=== PATIENT | female | born 1995 | race Caucasian/White ===

== ENCOUNTER 2023-08-22 17:42 | Inpatient (IN) ==
[2023-08-22 18:22] LABS: Basophils # (auto) 0.09 K/uL (0.00-0.20); Basophils % (auto) 0.8 %; Eosinophils # (auto) 0.24 K/uL (0.00-0.50); Hematocrit (blood only) 41.2 % (37.0-47.0); Hemoglobin 12.5 g/dl (12.0-16.0); Immature Granulocytes # (auto) 0.04 K/uL (0.01-0.20); Immature Granulocytes % (auto) 0.3 %; Lymphocytes # (auto) 3.44 K/uL (1.20-3.40); Mean Corpuscular Hemoglobin 21.9 pg (25.0-34.0); Mean Corpuscular Hgb Conc 30.3 g/dL (32.0-36.0); Mean Corpuscular Volume 72.3 fL (80.0-100.0); Mean Platelet Volume 9.9 fL (9.4-12.4); Monocytes # (auto) 0.59 K/uL (0.11-0.59); Neutrophils # (auto) 7.46 K/uL (1.40-6.50); Neutrophils % (auto) 62.9 %; Platelet Count 442 K/uL (130-400); RDW Coefficient of Variation 15.2 % (11.5-14.5); RDW Standard Deviation 38.3 fL (36.4-46.3); White Blood Count 11.86 K/ul (4.8-10.8)
[2023-08-22 18:23] LABS: Appearance Urine Cloudy (Clear); Bilirubin Urine Negative (Negative); Blood Urine Negative (Negative); Color Urine Yellow; Epithelial Cell Urine Auto >30 /lpf (0-5); Glucose Urine UA Negative (Negative); Ketones Urine Negative (Negative); Leukocyte Esterase Urine Negative (Negative); Nitrite Urine Negative (Negative); Protein Urine Negative (Negative); Specific Gravity Urine 1.025 (1.000-1.030); Urobilinogen Urine Negative (Negative); pH Urine 6.5 (4.5-7.5)
--- NOTE | 2023-08-22 18:34 | Emergency Department Note ---
Impression & Plan Suicidal ideation ED Provider Note HISTORY OF PRESENT ILLNESS: Patient is a 28-year-old female presenting with suicidal ideation. Patient reports that for the last 3 weeks she has been having more recurrent episodes and intrusive thoughts about ending her life. Reports that she will be driving down the road and think about taking her car off the road and into a baker to drown herself or crashing her car into a tree knee. Denies any specific plan. She recently started a new medication for her bipolar disorder 2 weeks ago through her psychiatrist. She has never attempted suicide before. Has never undergone inpatient psychiatric treatment. Denies any homicidal ideation. Denies any auditory visual hallucinations. Denies any physical complaints at this time. ROS: as above PHYSICAL EXAM: Constitutional: Patient appears in no acute distress. HENT: Head: Normocephalic and atraumatic. Eyes: EOMI, PERRL Mouth/Throat: Mucous membranes moist. Neck: Trachea midline. Neck supple. Musculoskeletal: No edema, tenderness or deformity noted. Skin: Warm and dry. No rash, erythema, pallor or cyanosis Psychiatric: Patient intermittently tearful. Neurological: Alert and keenly responsive. CN II-XII grossly intact, moving all extremities equally and fully. MDM: - Vitals signs showed hypertension and tachycardia - History obtained via patient. History as above. - Chronic conditions affecting care: bipolar disorder - Differential diagnoses include, but are not limited to: depression; UTI; alcohol intoxication; drug intoxication; electrolyte abnormality - External medical records reviewed. - Laboratory workup interpreted by myself showed slight leukocytosis (WBC 11.86); stable electrolytes; slightly elevated anion gap (12); normal TSH; negative hCG; negative alcohol/salicylate/acetaminophen levels - UA negative for infection. UDS negative - COVID negative. - Patient medically cleared. - Patient seen in conjunction with the behavioral health pillowcase cleaner. Patient was agreeable to voluntary 201 admission. 201 was signed by myself. - Patient was accepted and admitted to [address] inpatient psychiatric unit. ASSESSMENT AND PLAN: Diagnosis: suicidal ideation Plan: admit to [address] [place] [address] Past Med/Surg History Social History Smoking Status: Never smoker Preferred Language: Kittitian Feels Safe at Home: Yes Gender Identity: Female Allergies Allergies Allergy/AdvReac Type Severity Reaction Status Date / Time amoxicillin Allergy Rash Verified 08/22/23 20:18 Home Meds Home Medications Medication Instructions Recorded Confirmed cholecalciferol (vitamin D3) 125 5,000 unit PO DAILY 08/22/23 08/22/23 mcg (5,000 unit) tablet (Vitamin D3) levothyroxine 88 mcg tablet 88 mcg PO DAILY 08/22/23 08/22/23 lurasidone 20 mg tablet 20 mg PO DAILY 08/22/23 08/22/23 norgestimate-ethinyl estradiol 1 tab PO DAILY 08/22/23 08/22/23 0.18 mg/0.215mg/0.25mg-35 mcg(28)tablet venlafaxine 150 mg 187 mg PO DAILY 08/22/23 08/22/23 capsule,extended release 24 hr Results & Data (ED) Vital Signs Vital Signs - 24 hr 08/22/23 17:45 08/22/23 19:08 08/22/23 20:10 Temperature 36.5 C 36.5 C Temperature Source Temporal Artery Scan Oral Pulse Rate 110 H Pulse Rate [Left Finger] 114 H 95 H Pulse Rhythm Regular Pulse Strength Normal Respiratory Rate 18 16 18 Respiratory Effort / Characteristics Non-Labored Spontaneous Non-Labored Spontaneous Respiratory Depth Normal Normal Respiratory Pattern Regular Blood Pressure 166/103 H Blood Pressure [Right Arm] 172/114 H 136/76 Blood Pressure Mean 124 Blood Pressure Mean [Right Arm] 133 96 Blood Pressure Position Sitting Pulse Oximetry 94 97 97 Oxygen Delivery Method Room Air Room Air Room Air Sepsis Recent Fever Within 48 Hours No Sepsis New/Unexplained Change in Mental Status No Sepsis Action Taken by Nursing No Action Required Laboratory Data 08/22/23 18:04 08/22/23 18:04 Lab Results 08/22/23 08/22/23 08/22/23 Range/Units 17:50 18:04 18:14 WBC 11.86 H (4.8-10.8) K/ul RBC 5.70 H (4.20-5.40) M/uL Hgb 12.5 (12.0-16.0) g/dl Hct 41.2 (37.0-47.0) % MCV 72.3 L (80.0-100.0) fL MCH 21.9 L (25.0-34.0) pg MCHC 30.3 L (32.0-36.0) g/dL RDW Std Deviation 38.3 (36.4-46.3) fL RDW Coeff of Rex 15.2 H (11.5-14.5) % Plt Count 442 H (130-400) K/uL MPV 9.9 (9.4-12.4) fL Immature Gran % (Auto) 0.3 % Neut % (Auto) 62.9 % Lymph % (Auto) 29.0 % [place] % (Auto) 5.0 % Eos % (Auto) 2.0 % Baso % (Auto) 0.8 % Neut # (Auto) 7.46 H (1.40-6.50) K/uL Lymph # (Auto) 3.44 H (1.20-3.40) K/uL [place] # (Auto) 0.59 (0.11-0.59) K/uL Eos # (Auto) 0.24 (0.00-0.50) K/uL Baso # (Auto) 0.09 (0.00-0.20) K/uL Immature Gran # (Auto) 0.04 (0.01-0.20) K/uL Sodium 140 (136-145) mmol/L Potassium 4.0 (3.5-5.1) mmol/L Chloride 102 (98-107) mmol/L Carbon Dioxide 26 (21-32) mmol/L Anion Gap 12 H (3-11) BUN 13 (6-23) mg/dl Creatinine 0.79 (0.6-1.2) mg/dl Est Cr Clr Drug Dosing 146.2 ml/min Est GFR ( Amer) 119.7 ml/min Est GFR (Non-Af Amer) 103.3 ml/min BUN/Creatinine Ratio 16.5 (10-20) Glucose 113 H (70-99(Fasting)) mg/dl Calcium 9.6 (8.6-10.3) mg/dl Total Bilirubin 0.3 (0.2-1.0) mg/dl AST 129 H (13-39) U/L ALT 41 (7-52) U/L Alkaline Phosphatase 88 (34-104) U/L Total Protein 7.9 (6.0-8.3) gm/dl Albumin 4.1 (3.4-5.0) gm/dl Globulin 3.8 (2.5-4.0) gm/dl Albumin/Globulin Ratio 1.1 (0.9-2) TSH 3.002 (0.300-4.500) uIu/ml HCG, Qual Negative (Negative) Urine Color Yellow Urine Appearance Cloudy A (Clear) Urine pH 6.5 (4.5-7.5) Ur Specific [place] 1.025 (1.000-1.030) Urine Protein Negative (Negative) Urine Glucose (UA) Negative (Negative) Urine Ketones Negative (Negative) Urine Blood Negative (Negative) Urine Nitrite Negative (Negative) Urine Bilirubin Negative (Negative) Urine Urobilinogen Negative (Negative) Ur Leukocyte Esterase Negative (Negative) Urine WBC (Auto) 5-10 H (0-5) /hpf Urine RBC (Auto) 0-4 (0-4) /hpf U Hyaline Cast (Auto) 1-5 (0-5) /lpf U Epithel Cells (Auto) >30 H (0-5) /lpf Urine Bacteria (Auto) 2+ H (Negative) Salicylates < 3.0 L (3.0-30) mg/dl Urine Opiates Screen Neg (Neg) Ur Methadone, Qual Neg (Neg) Acetaminophen < 3 L (10-30) ug/ml Urine Barbiturates Neg (Neg) Ur Phencyclidine (PCP) Neg (Neg) U Amphetamin/Meth Scrn Neg (Neg) MDMA (Ecstasy) Screen Neg (Neg) U Benzodiazepines Scrn Neg (Neg) Ur Cocaine Metabolite Neg (Neg) U Marijuana (THC) Screen Neg (Neg) Ethyl Alcohol mg/dL < 10.0 (<10.0) mg/dl SARS-CoV-2, RNA, NAAT NEGATIVE (NEGATIVE) Discharge Plan Visit Data Chief Complaint: Mental Health Evaluation Stated Complaint: [facility] ED Provider: Renee Nuno Discharge Problem: Suicidal ideation Forms Stand Alone Forms: My [facility], Suicide Prevention Resources Prescriptions Prescriptions: No Action venlafaxine 150 mg capsule,extended release 24hr 187 mg PO DAILY levothyroxine 88 mcg tablet 88 mcg PO DAILY norgestimate-ethinyl estradiol 0.18/0.215/0.25 mg-35 mcg (28) tablet 1 tab PO DAILY cholecalciferol (vitamin D3) [Vitamin D3] 125 mcg (5,000 unit) tablet 5,000 unit PO DAILY lurasidone 20 mg tablet 20 mg PO DAILY Referrals Referrals: PCP,NO [Physician] -
[2023-08-22 18:36] LABS: Pregnancy Test, Serum Negative (Negative)
[2023-08-22 18:42] LABS: Bacteria Urine Automated 2+ (Negative); RBC Urine Automated 0-4 /hpf (0-4)
[2023-08-22 18:45] LABS: Acetaminophen < 3 ug/ml (10-30); Salicylate < 3.0 mg/dl (3.0-30)
[2023-08-22 18:46] LABS: Albumin Globulin Ratio 1.1 (0.9-2); Albumin Level 4.1 gm/dl (3.4-5.0); BUN Creatinine Ratio 16.5 (10-20); Bilirubin,Total 0.3 mg/dl (0.2-1.0); Calcium 9.6 mg/dl (8.6-10.3); Creatinine Clr Calc Pharmacy 146.2 ml/min; Est GFR (African American) 119.7 ml/min; Est GFR (Non-African American) 103.3 ml/min; Globulin 3.8 gm/dl (2.5-4.0); Total Protein 7.9 gm/dl (6.0-8.3)
[2023-08-22 18:57] LABS: Amphetamines+Metham, Urine Neg (Neg); Barbiturates, Urine Neg (Neg); Benzodiazepine, Urine Neg (Neg); Cocaine, Urine Neg (Neg); MDMA (Ecstacy), Urine Neg (Neg); Marijuana, Urine Neg (Neg); Methadone, Urine Neg (Neg); Opiate, Urine Neg (Neg); Phencyclidine, Urine Neg (Neg)
[2023-08-22 19:00] LABS: Thyroid Stimulating Hormone 3.002 uIu/ml (0.300-4.500)
[2023-08-22] MEDS ORDERED: hydrOXYzine HCl 25 MG TAB PO PRN (21:55)
[2023-08-22] MEDS ORDERED: MAGNESIUM HYDROXIDE SUSP 30 ML UDC PO PRN (21:55)
[2023-08-22] MEDS ORDERED: BISMUTH SUBSALICYLATE LIQD 236 ML PO PRN (21:55)
[2023-08-22] MEDS ORDERED: ACETAMINOPHEN 325 MG TAB PO PRN (21:55)
[2023-08-22] MEDS ORDERED: SODIUM CHLORIDE 0.65% NA SOLN 45 ML (OCEAN) PRN (21:55)
[2023-08-22] MEDS: LURASIDONE HCL 20 MG TAB PO SCH (22:28)
[2023-08-22] MEDS: hydrOXYzine HCl 25 MG TAB PO PRN (22:29)
[2023-08-23] MEDS: CHOLECALCIFEROL 125 MCG (5,000 UNITS) TAB PO SCH (08:45)
[2023-08-23] MEDS: LEVOTHYROXINE SODIUM 88 MCG TABLET PO SCH (08:45)
[2023-08-23] MEDS ORDERED: CHOLECALCIFEROL 125 MCG (5,000 UNITS) TAB PO SCH (09:00)
[2023-08-23] MEDS ORDERED: VENLAFAXINE HCL XR 37.5 MG CAPXR PO SCH (11:00)
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
[2023-08-23] MEDS: VENLAFAXINE HCL XR 150 MG CAPXR PO SCH (12:17)
[2023-08-23] MEDS: VENLAFAXINE HCL XR 37.5 MG CAPXR PO SCH (12:17)
[2023-08-23] MEDS: ALUMINUM/MAGNESIUM SUSP 30 ML UDC PO PRN (12:36)
[2023-08-23] MEDS: PATIENT'S OWN ORAL CONTRACEPTIVE PO SCH (21:05)
[2023-08-23] MEDS ORDERED: PATIENT'S OWN ORAL CONTRACEPTIVE PO SCH (22:00)
--- NOTE | 2023-08-24 14:24 | Psychiatric Progress Note ---
Date of Service August 24, 2023 Impression / Recommendations Impression 28 yo female with a hx of hypomania and recurrent depression reports addition hx of complex trauma (did not elaborate on PTSD sx) presented to ED with persistent SI despite increase in frequency of outpatient therapy to assess coping. 08/24/2023: unclear if reports of compulsions are OCD vs. trauma based vs. racing thoughts. Does not appear restless or manic on exam. Overall, I spent a total of 40 minutes with this case, including review of chart, direct evaluation of the patient, counseling the patient, ordering medication, coordination with nursing/treatment team, risk assessment, and documentation. (1) Bipolar 2 disorder: Plan 08/24/2023: Reviewed can defer retrial of Lamictal to outpatient. Hasn't tried lithium but already hypothyroid. Patient agreeable to titrate Latuda to 40 mg and take with food to improve absorption. Reviewed increasing Effexor XR to optimize given severity of anxiety/depressive symptoms to 225 mg. 08/23/2023: The patient was admitted to the [facility] ([facility]) on q15 min checks (behavioral with suicide precautions) for safety. The patient will participate in group, recreational, and milieu therapies and will be offered additional individual and family sessions as clinically appropriate. Discussed possible retrial of Lamictal vs. titration of Latuda and/or Effexor XR. Inventory Assets Strengths: help seeking, employed Needs: improve boundaries and overall coping Suicide Risk Level Suicide Risk Level: High-Moderate (q15 min suicide checks) Risk Factors Assessment : Yes Do You Have Access To A Gun?: No Mental Health Diagnoses: Yes Substance Use Disorders: No Previous Attempt: No Previous Psychiatric Hospitalization: No Protective Factors Assessment Employed: Yes (KG teacher) Stable Relationships: Yes Interval History Identifying Information ALPHONSO MENDEZ is a 28-year-old F who currently lives in [facility] and was admitted on 08/22/23 21:16 on a 201 voluntary commitment for SI. Chief Complaint "I feel guilty for being here." Review of Systems Sleep Information Total Hours of Sleep: 7.75 Meal Information Percent Meal Consumed - Breakfast: 100 Percent Meal Consumed - Lunch: 100 Percent Meal Consumed - Dinner: 100 Subjective Subjective Patient was seen & assessed and interval progress reviewed with treatment team. Patient described some of her checking behaviors over concerns about doors being unlocked or switches left on. She could not tie it directly to past trauma but has been worse in past where even taking a picture of the switch did not appease her. She checks on things at work even when she is not there. She reports often fueling her depression with checking social media and making comparison. Is typically exhausted after work and can't motivate self to exercise or make health choices. She is willing to shift dosing of Latuda and continue trial. did not sleep as well last night. Physical Exam Psychiatric Orientation: alert and oriented x 3 Apperance: appropriately dressed and appropriately groomed Eye Contact: good eye contact Motor Behavior: no abnormal motor movements Speech: normal rate/rhythm/volume of speech Affect: + depressed affect Mood: + depressed mood Thought Process: goal directed thought process Thought Content: reality based without delusions Suicidal Thoughts: denies suicidal thoughts, denies suicidal plan (on unit) and denies suicidal intent Homicidal Thoughts: denies homicidal thoughts Hallucinations: no auditory hallucinations and no visual hallucinations Cognition: attention grossly intact and language grossly intact Estimated Intelligence: consistent with education level Insight: + limited insight Judgment: + limited judgement Vital Signs (Past 24 Hours) Last Vital Signs Temp 36.9 C 08/24/23 06:37 Pulse 108 H 08/24/23 06:37 Resp 16 08/24/23 06:37 BP 132/87 08/24/23 06:37 Pulse Ox 94 08/22/23 22:43 O2 Del Method Room Air 08/22/23 22:43 Results & Data ([facility]) Current Inpatient Medications Current Inpatient Medications: Current Inpatient Medications Acetaminophen (Acetaminophen 325 Mg Tab) 650 mg PO Q4H PRN PRN Reason: Headache or Minor Fever Stop: 09/21/23 21:54 Al Hydrox/Mg Hydrox/Simethicone (Aluminum/Magnesium Susp 30 Ml Udc) 30 ml PO Q4H PRN PRN Reason: GI Upset Stop: 09/21/23 21:54 Last Admin: 08/23/23 12:36 Dose: 30 ml Bismuth Subsalicylate (Bismuth Subsalicylate Liqd 236 Ml) 15 ml PO PRN PRN PRN Reason: Loose Stool Stop: 09/21/23 21:54 Hydroxyzine HCl (Hydroxyzine Hcl 25 Mg Tab) 50 mg PO HSZ PRN PRN Reason: Insomnia Stop: 09/21/23 21:54 Last Admin: 08/22/23 22:29 Dose: 50 mg Hydroxyzine HCl (Hydroxyzine Hcl 25 Mg Tab) 25 mg PO Q4H PRN PRN Reason: Anxiety Stop: 09/21/23 21:54 Levothyroxine Sodium (Levothyroxine Sodium 88 Mcg Tablet) 88 mcg PO DAILYBB PAMELA Stop: 09/22/23 07:59 Last Admin: 08/24/23 08:02 Dose: 88 mcg Lurasidone HCl (Lurasidone Hcl 20 Mg Tab) 20 mg PO HS PAMELA Stop: 09/21/23 21:59 Last Admin: 08/23/23 21:06 Dose: 20 mg Magnesium Hydroxide (Magnesium Hydroxide Susp 30 Ml Udc) 30 ml PO DAILY PRN PRN Reason: Constipation Stop: 09/21/23 21:54 Miscellaneous (Patient's Own Oral Contraceptive) 1 each PO Q24H PAMELA Stop: 09/22/23 08:59 Last Admin: 08/23/23 21:05 Dose: 1 each Sodium Chloride (Sodium Chloride 0.65% Na Soln 45 Ml ([place])) 1 - 2 sprays NA PRN PRN PRN Reason: Nasal Dryness/Congestion Stop: 09/21/23 21:54 Venlafaxine HCl (Venlafaxine Hcl Xr 150 Mg Capxr) 150 mg PO DAILY PAMELA Stop: 09/22/23 11:29 Last Admin: 08/24/23 08:02 Dose: 150 mg Venlafaxine HCl (Venlafaxine Hcl Xr 37.5 Mg Capxr) 37.5 mg PO DAILY PAMELA Stop: 09/22/23 11:29 Last Admin: 08/24/23 08:02 Dose: 37.5 mg Vitamin D (Cholecalciferol 125 Mcg (5,000 Units) Tab) 125 mcg PO DAILY PAMELA Stop: 09/22/23 08:59 Last Admin: 08/24/23 08:02 Dose: 125 mcg Mental Health & Subst Abuse Tx Psychiatrist Name of Psychiatrist: Claudia Valera Psychiatrist's Date Of Appointment With Psychiatric Provider: 09/01/23 Time of Appointment with Psychiatrist: 1:15 PM Psychiatric Appointment Comment: telehealth Therapist Name of Therapist: Private therapist- Sobeida Carowick - [facility] The[facility]ist's Date of Therapist Appointment: 08/24/2023 Time of Therapist Appointment: 1500 Therapy Appointment Comment: [address], [address], [place] [id number] Post Discharge Appointments Primary Care Physician Name Of Family Doctor/PCP: [facility]- Hailey Foy Primary Care Provider Appointment Comment: [facility], [place] [address] Contact Information Discharge Discharge Address: [address] [facility] [place] [address]
[2023-08-24] MEDS: VENLAFAXINE HCL XR 37.5 MG CAPXR PO ONE (15:04)
[2023-08-24] MEDS: LURASIDONE HCL 20 MG TAB PO SCH (17:35)
[2023-08-24] MEDS: hydrOXYzine HCl 25 MG TAB PO SCH (20:41)
[2023-08-25] MEDS: VENLAFAXINE HCL XR 75 MG CAPXR PO SCH (08:17)
--- NOTE | 2023-08-25 12:15 | Psychiatric Progress Note ---
Date of Service August 25, 2023 Impression / Recommendations Impression 28 yo female with a hx of hypomania and recurrent depression reports addition hx of complex trauma (did not elaborate on PTSD sx) presented to ED with persistent SI despite increase in frequency of outpatient therapy to assess coping. 08/25/2023: more suicidal thoughts today. Overall, I spent a total of 37 minutes with this case, including review of chart, direct evaluation of the patient, counseling the patient, ordering medication, coordination with nursing/treatment team, risk assessment, and documentation. (1) Bipolar 2 disorder: Plan 08/25/2023: Vistaril appears effective for sleep, may need additional for anxiety during day, p this am 130 at one point, recheck 85 so can defer EKG for now. 08/24/2023: Reviewed can defer retrial of Lamictal to outpatient. Hasn't tried lithium but already hypothyroid. Patient agreeable to titrate Latuda to 40 mg and take with food to improve absorption. Reviewed increasing Effexor XR to optimize given severity of anxiety/depressive symptoms to 225 mg. 08/23/2023: The patient was admitted to the [facility] ([facility] mental [facility] unit) on q15 min checks (behavioral with suicide precautions) for safety. The patient will participate in group, recreational, and milieu therapies and will be offered additional individual and family sessions as clinically appropriate. Discussed possible retrial of Lamictal vs. titration of Latuda and/or Effexor XR. Inventory Assets Strengths: help seeking, employed Needs: improve boundaries and overall coping Suicide Risk Level Suicide Risk Level: High-Moderate (q15 min suicide checks) Risk Factors Assessment : Yes Do You Have Access To A Gun?: No Mental Health Diagnoses: Yes Substance Use Disorders: No Previous Attempt: No Previous Psychiatric Hospitalization: No Protective Factors Assessment Employed: Yes (KG teacher) Stable Relationships: Yes Interval History Identifying Information ALPHONSO MENDEZ is a 28-year-old F who currently lives in [facility] and was admitted on 08/22/23 21:16 on a 201 voluntary commitment for SI. Chief Complaint "I still think it would be easier not to be alive." Review of Systems Sleep Information Total Hours of Sleep: 8.25 Meal Information Percent Meal Consumed - Breakfast: 100 Percent Meal Consumed - Lunch: 100 Percent Meal Consumed - Dinner: 90 Subjective Subjective Patient was seen & assessed and interval progress reviewed with nursing and social work. Patient has seemed calmer and attending more groups, still rates mood as low. Patient denies side effects of med changes so far. She remains anxious, overwhelmed by concept of limits. Reports feelings that her sister had it easier as doesn't have to deal with life and would like to be with her in [facility]. She is clear that she doesn't plan to act on these thoughts in the hospital but worries about her functioning outside of the hospital and when/if she should go back to her job. Physical Exam Psychiatric Orientation: alert and oriented x 3 Apperance: appropriately dressed and appropriately groomed Eye Contact: good eye contact Motor Behavior: no abnormal motor movements Speech: normal rate/rhythm/volume of speech Affect: + depressed affect Mood: + depressed mood Thought Process: goal directed thought process Thought Content: reality based without delusions Suicidal Thoughts: denies suicidal plan (on unit) and denies suicidal intent; + reports suicidal thoughts Homicidal Thoughts: denies homicidal thoughts Hallucinations: no auditory hallucinations and no visual hallucinations Cognition: attention grossly intact and language grossly intact Estimated Intelligence: consistent with education level Insight: + limited insight Judgment: + limited judgement Vital Signs (Past 24 Hours) Last Vital Signs Temp 36.7 C 08/25/23 06:29 Pulse 130 H 08/25/23 06:29 Resp 16 08/25/23 06:29 BP 142/87 H 08/25/23 06:29 Pulse Ox 94 08/22/23 22:43 O2 Del Method Room Air 08/22/23 22:43 Results & Data ([facility]) Current Inpatient Medications Current Inpatient Medications: Current Inpatient Medications Acetaminophen (Acetaminophen 325 Mg Tab) 650 mg PO Q4H PRN PRN Reason: Headache or Minor Fever Stop: 09/21/23 21:54 Al Hydrox/Mg Hydrox/Simethicone (Aluminum/Magnesium Susp 30 Ml Udc) 30 ml PO Q4H PRN PRN Reason: GI Upset Stop: 09/21/23 21:54 Last Admin: 08/23/23 12:36 Dose: 30 ml Bismuth Subsalicylate (Bismuth Subsalicylate Liqd 236 Ml) 15 ml PO PRN PRN PRN Reason: Loose Stool Stop: 09/21/23 21:54 Hydroxyzine HCl (Hydroxyzine Hcl 25 Mg Tab) 50 mg PO HSZ PRN PRN Reason: Insomnia Stop: 09/21/23 21:54 Last Admin: 08/22/23 22:29 Dose: 50 mg Hydroxyzine HCl (Hydroxyzine Hcl 25 Mg Tab) 25 mg PO Q4H PRN PRN Reason: Anxiety Stop: 09/21/23 21:54 Hydroxyzine HCl (Hydroxyzine Hcl 25 Mg Tab) 50 mg PO HS PAMELA Stop: 09/23/23 21:59 Last Admin: 08/24/23 20:41 Dose: 50 mg Levothyroxine Sodium (Levothyroxine Sodium 88 Mcg Tablet) 88 mcg PO DAILYBB PAMELA Stop: 09/22/23 07:59 Last Admin: 08/25/23 08:16 Dose: 88 mcg Lurasidone HCl (Lurasidone Hcl 20 Mg Tab) 40 mg PO DAILYBD PAMELA Stop: 09/23/23 17:14 Last Admin: 08/24/23 17:35 Dose: 40 mg Magnesium Hydroxide (Magnesium Hydroxide Susp 30 Ml Udc) 30 ml PO DAILY PRN PRN Reason: Constipation Stop: 09/21/23 21:54 Miscellaneous (Patient's Own Oral Contraceptive) 1 each PO Q24H PAMELA Stop: 09/22/23 08:59 Last Admin: 08/24/23 20:40 Dose: 1 each Sodium Chloride (Sodium Chloride 0.65% Na Soln 45 Ml ([place])) 1 - 2 sprays NA PRN PRN PRN Reason: Nasal Dryness/Congestion Stop: 09/21/23 21:54 Venlafaxine HCl (Venlafaxine Hcl Xr 75 Mg Capxr) 225 mg PO DAILY PAMELA Stop: 09/24/23 08:59 Last Admin: 08/25/23 08:17 Dose: 225 mg Vitamin D (Cholecalciferol 125 Mcg (5,000 Units) Tab) 125 mcg PO DAILY PAMELA Stop: 09/22/23 08:59 Last Admin: 08/25/23 08:17 Dose: 125 mcg Mental Health & Subst Abuse Tx Psychiatrist Name of Psychiatrist: Claudia Valera Psychiatrist's Date Of Appointment With Psychiatric Provider: 09/01/23 Time of Appointment with Psychiatrist: 1:15 PM Psychiatric Appointment Comment: telehealth Therapist Name of Therapist: Private therapist- Sobeida Villarreal Therapist's Date of Therapist Appointment: 08/24/2023 Time of Therapist Appointment: 1500 Therapy Appointment Comment: [address], [address], [place] [phone] Post Discharge Appointments Primary Care Physician Name Of Family Doctor/PCP: [facility]- Hailey Foy Primary Care Provider [facility] [place] [address] Contact Information Discharge Discharge Address: [address] [place] [address]
--- NOTE | 2023-08-26 08:51 | Psychiatric Progress Note ---
Date of Service August 26, 2023 Impression / Recommendations Impression 28 yo female with a hx of hypomania and recurrent depression reports addition hx of complex trauma (did not elaborate on PTSD sx) presented to ED with persistent SI despite increase in frequency of outpatient therapy to assess coping. 08/26/2023: Improving mood, feels that processing stressors has been very helpful and now focused on desire to return to her job and start working on changing things she can control. No medication side effects. Pulse slightly elevated this AM but without any symptoms. Overall, I spent a total of 35 minutes with this case, including review of chart, direct evaluation of the patient, counseling the patient, ordering medication, coordination with nursing/treatment team, risk assessment, and documentation. (1) Bipolar 2 disorder: Plan 08/26/2023: Working on safety planning, needs support meeting, continue current medications and tx plan. 08/25/2023: Vistaril appears effective for sleep, may need additional for anxiety during day, p this am 130 at one point, recheck 85 so can defer EKG for now. 08/24/2023: Reviewed can defer retrial of Lamictal to outpatient. Hasn't tried lithium but already hypothyroid. Patient agreeable to titrate Latuda to 40 mg and take with food to improve absorption. Reviewed increasing Effexor XR to optimize given severity of anxiety/depressive symptoms to 225 mg. 08/23/2023: The patient was admitted to the [facility] ([facility] mental health unit) on q15 min checks (behavioral with suicide precautions) for safety. The patient will participate in group, recreational, and milieu therapies and will be offered additional individual and family sessions as clinically appropriate. Discussed possible retrial of Lamictal vs. titration of Latuda and/or Effexor XR. Inventory Assets Strengths: help seeking, employed Needs: improve boundaries and overall coping Suicide Risk Level Suicide Risk Level: Moderate (q15 min suicide checks) (presented with depression and SI but mood improving and now denying SI, feels safe on the unit, feels comfortable letting nurses know if she feels unsafe or requires additional support) Risk Factors Assessment : Yes Do You Have Access To A Gun?: No Mental Health Diagnoses: Yes Substance Use Disorders: No Previous Attempt: No Previous Psychiatric Hospitalization: No Protective Factors Assessment Employed: Yes (KG teacher) Stable Relationships: Yes Interval History Identifying Information ALPHONSO MENDEZ is a 28-year-old F who currently lives in [facility] and was admitted on 08/22/23 21:16 on a 201 voluntary commitment for SI. Chief Complaint "I feel good". Review of Systems Sleep Information Total Hours of Sleep: 8 Sleep Comments: Requested Vistaril PRN Meal Information Percent Meal Consumed - Breakfast: 100 Percent Meal Consumed - Lunch: 100 Percent Meal Consumed - Dinner: 100 Subjective Subjective Patient was seen & assessed and interval progress reviewed with treatment team nursing and social work. Reports good mood today. Had a very productive discussion with unit counselor yesterday and feels she can now, and wants, to return to work to discuss recent challenges with aides and work on challenging some of her cognitive distortions. She denies any side effects from medication changes. Denies any suicidal ideation. Agreeable to scheduling family meeting and wants to work on processing hurtful text messages today with staff support as she feels this contributed to her decompensation leading to admission. Physical Exam Psychiatric Orientation: alert and oriented x 3 Apperance: appropriately dressed and appropriately groomed Eye Contact: good eye contact Motor Behavior: no abnormal motor movements Speech: normal rate/rhythm/volume of speech Affect: + anxious affect Mood: + anxious mood Thought Process: goal directed thought process Thought Content: reality based without delusions Suicidal Thoughts: denies suicidal thoughts, denies suicidal plan and denies suicidal intent Homicidal Thoughts: denies homicidal thoughts Hallucinations: no auditory hallucinations and no visual hallucinations Cognition: attention grossly intact and language grossly intact Estimated Intelligence: consistent with education level Insight: + fair insight Judgment: + fair judgement Vital Signs (Past 24 Hours) Last Vital Signs Temp 36.7 C 08/26/23 06:30 Pulse 105 H 08/26/23 06:31 Resp 16 08/26/23 06:30 BP 121/84 08/26/23 06:31 Pulse Ox 94 08/22/23 22:43 O2 Del Method Room Air 08/22/23 22:43 Results & Data ([facility]) Current Inpatient Medications Current Inpatient Medications: Current Inpatient Medications Acetaminophen (Acetaminophen 325 Mg Tab) 650 mg PO Q4H PRN PRN Reason: Headache or Minor Fever Stop: 09/21/23 21:54 Al Hydrox/Mg Hydrox/Simethicone (Aluminum/Magnesium Susp 30 Ml Udc) 30 ml PO Q4H PRN PRN Reason: GI Upset Stop: 09/21/23 21:54 Last Admin: 08/23/23 12:36 Dose: 30 ml Bismuth Subsalicylate (Bismuth Subsalicylate Liqd 236 Ml) 15 ml PO PRN PRN PRN Reason: Loose Stool Stop: 09/21/23 21:54 Hydroxyzine HCl (Hydroxyzine Hcl 25 Mg Tab) 50 mg PO HSZ PRN PRN Reason: Insomnia Stop: 09/21/23 21:54 Last Admin: 08/22/23 22:29 Dose: 50 mg Hydroxyzine HCl (Hydroxyzine Hcl 25 Mg Tab) 25 mg PO Q4H PRN PRN Reason: Anxiety Stop: 09/21/23 21:54 Hydroxyzine HCl (Hydroxyzine Hcl 25 Mg Tab) 50 mg PO HS PAMELA Stop: 09/23/23 21:59 Last Admin: 08/25/23 20:54 Dose: 50 mg Levothyroxine Sodium (Levothyroxine Sodium 88 Mcg Tablet) 88 mcg PO DAILYBB PAMELA Stop: 09/22/23 07:59 Last Admin: 08/26/23 08:34 Dose: 88 mcg Lurasidone HCl (Lurasidone Hcl 20 Mg Tab) 40 mg PO DAILYBD PAMELA Stop: 09/23/23 17:14 Last Admin: 08/25/23 17:34 Dose: 40 mg Magnesium Hydroxide (Magnesium Hydroxide Susp 30 Ml Udc) 30 ml PO DAILY PRN PRN Reason: Constipation Stop: 09/21/23 21:54 Miscellaneous (Patient's Own Oral Contraceptive) 1 each PO Q24H PAMELA Stop: 09/22/23 08:59 Last Admin: 08/25/23 20:54 Dose: 1 each Sodium Chloride (Sodium Chloride 0.65% Na Soln 45 Ml ([place])) 1 - 2 sprays NA PRN PRN PRN Reason: Nasal Dryness/Congestion Stop: 09/21/23 21:54 Venlafaxine HCl (Venlafaxine Hcl Xr 75 Mg Capxr) 225 mg PO DAILY PAMELA Stop: 09/24/23 08:59 Last Admin: 08/26/23 08:34 Dose: 225 mg Vitamin D (Cholecalciferol 125 Mcg (5,000 Units) Tab) 125 mcg PO DAILY PAMELA Stop: 09/22/23 08:59 Last Admin: 08/26/23 08:34 Dose: 125 mcg Mental Health & Subst Abuse Tx Psychiatrist Name of Psychiatrist: Claudia Valera Psychiatrist's Date Of Appointment With Psychiatric Provider: 09/01/23 Time of Appointment with Psychiatrist: 1:15 PM Psychiatric Appointment Comment: telehealth Therapist Name of Therapist: Private therapist- Sobeida Villarreal Therapist's Date of Therapist Appointment: 08/24/2023 Time of Therapist Appointment: 1500 Therapy Appointment Comment: [address], [address], [place] [phone] Post Discharge Appointments Primary Care Physician Name Of Family Doctor/PCP: [facility]- Hailey Foy Primary Care Provider Appointment Comment: [address], [place] [address] Contact Information Discharge Discharge Address: [address] [facility] [place] [address]
[2023-08-26] MEDS ORDERED: CALCIUM CARBONATE 500 MG CHEWABLE TAB PO PRN (15:03)
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
== END 2023-08-27 12:10 | disposition home or self-care (01) | DRG 885 ==
LOC: ED 17:42 → 3S 21:16 → SUATTDRO 21:16 → 3S 21:37